=== PATIENT | female | born 1980 | race Caucasian/White ===

== ENCOUNTER 2016-08-26 13:39 | Outpatient (CLI) | payer OTHER ==
--- NOTE | 2016-08-26 15:50 | DIAGNOSTIC IMAGING REPORT ---
PROCEDURE: US OB 1ST TRIMESTER W/TRANSVAG INDICATION: Uncertain dates. TECHNIQUE: Ward scale, color, and spectral Doppler transabdominal and endovaginal sonographic images of the first trimester gravid uterus were obtained. COMPARISON: None. FINDINGS: TRANSABDOMINAL SCANS: Bicornuate uterus. Single intrauterine gestational sac on the right side. TRANSVAGINAL SCANS: Gestational sac in the right cornua measures 8 mm, 5 weeks 4 days. No evidence of a yolk sac or pole. There is a 2.7 cm left ovarian corpus luteum cyst. IMPRESSION: 1. Bicornuate uterus with a gestational sac in the right cornua (5 weeks 4 days). No pole visualized. Recommend follow-up Beta hCG and ultrasound
== END 2016-08-26 23:00 ==
LOC: US SRH 13:39
DX: O00.80 Other ectopic pregnancy without intrauterine pregnancy (principal); Q51.3 Bicornate uterus

== ENCOUNTER 2016-08-30 11:39 | Outpatient (CLI) | payer OTHER | END 2016-08-30 23:00 | disposition home or self-care (01) | LOC: LAB SRH 11:39 | DX: Z33.1 Pregnant state, incidental (principal) | CPT/HCPCS: 90074; 90197 ==

== ENCOUNTER 2016-09-01 15:53 | Outpatient (CLI) | payer OTHER ==
--- NOTE | 2016-09-02 13:08 | DIAGNOSTIC IMAGING REPORT ---
PROCEDURE: US OB 1ST TRIMESTER W/TRANSVAG INDICATION: Follow-up intrauterine sac. History of left tubal ectopic and ablation for bicornuate uterus. Recent hCG levels 1912 (08/30/2016) 2100 (08/28/2016). TECHNIQUE: Ward scale, color, and spectral Doppler transabdominal and endovaginal sonographic images of the first trimester gravid uterus were obtained. COMPARISON: Comparison is made to obstetric ultrasound 08/26/2016. FINDINGS: TRANSABDOMINAL SCANS: Uterus is of normal size. TRANSVAGINAL SCANS: There is a 6.7 mm elongated fluid sac in the right horn of a bicornuate uterus, but no evidence of pole or yolk sac. Moderate thickening of the left horn of the bicornuate uterus may represent post ablation changes. There is a 10 mm cervical Nabothian cyst (incidental finding). There is a 2.6 cm left corpus luteum cyst. Right ovary is normal (2.9 cm). No evidence of free fluid. IMPRESSION: 1. There is a persistent 6.7 mm elongated fluid sac (5.7 weeks) in the right horn of a bicornuate uterus, although there is no evidence of pole or yolk sac. In view of the patient's persistent mildly elevated hCG levels, consider blighted ovum or occult ectopic as the most likely possibilities. A repeat hCG level is recommended at this time. 2. Findings discussed with MITCHELL Granger.
== END 2016-09-01 23:00 ==
LOC: US SRH 15:53
DX: Z34.91 Encounter for supervision of normal pregnancy, unspecified, first trimester (principal); Z3A.01 Less than 8 weeks gestation of pregnancy

== ENCOUNTER 2016-09-02 13:48 | Outpatient (CLI) | payer OTHER | END 2016-09-02 23:00 | LOC: LAB SRH 13:48 | DX: Z33.1 Pregnant state, incidental (principal) | CPT/HCPCS: 90197 ==